=== PATIENT | male | born 1975 | race Caucasian/White ===

== ENCOUNTER → 2017-04-12 | Day surgery (SDC) | payer OTHER ==
[~2017-04-12] VITALS: Ht 177.8 cm; Wt 92.9 kg
[~2017-04-12] MED LIST: DIOVAN320 MG PO; NORCO 5-325 TA1 EACH PO; NORVASC5 MG PO; PROAIR HFA8.5 GM INH
--- NOTE | ~2017-04-12 | OR ---
PATIENT'S NAME: ANJEL BECKETT [facility] AGE: 41 Y [address] ROOM: [place] [id number] LOCATION: [facility] – [place] ADMIT DATE: 04/12/2017 OR/Procedure Report DISCHARGE DATE: FAMILY PHYSICIAN: Herminia Orta MD ATTENDING PHYSICIAN: German Song SURGEON: German Song DPM PARTS FACILITATOR: DATE OF PROCEDURE: 04/12/2017 PREOPERATIVE DIAGNOSIS: Neuroma, third intermetatarsal space, right foot. POSTOPERATIVE DIAGNOSIS: Neuroma, third intermetatarsal space, right foot. PROCEDURE PERFORMED: Neurectomy, third intermetatarsal space, right foot. OPERATIVE SUMMARY: On 04/12/2017, this 41-year-old male was transported to the operating room and placed on the operating room table in supine position. Next, under sedation, local anesthesia was achieved via an ankle block to the right foot and ankle. Next, the right foot was prepped and draped in the usual sterile fashion. Next, pneumatic ankle tourniquet was applied to well- padded site just proximal to malleoli and about the midcalf and roughly inflated to 250 mmHg following exsanguination by Esmarch bandage. Next, the right lower extremity was delivered back to the operating room table, sterile draping was completed, and the following procedure was performed. NEURECTOMY, THIRD INTERMETATARSAL SPACE, RIGHT FOOT. At this time, attention was directed towards the patient's right foot and on preoperative evaluation, he was noted to have significant pain on palpation to the third intermetatarsal space consistent with neuroma. So, at this time, approximately 4 cm linear incision was created directly in the intermetatarsal space and continued slightly into the interdigital space to get access to the digital nerve. This incision was deepened down through the subcutaneous tissues. All coursing venous tributaries were identified, isolated, clamped, cut, electrocoagulated, and encountered. All vital neurovascular structures were gently retracted in the medial and lateral fashion. Dissection was carried down to the level of the transverse metatarsal ligament between the third and fourth metatarsals and this was sharply transected. Once through this area, the intermetatarsal space was palpated plantarly and the enlarged nerve immediately was visible on the plantar aspect of the incision. Once this was identified, hemostat was used to clamp this off and then it was removed utilizing a tenotomy scissor. It was removed in total and sent to Pathology for both gross and microscopic examination. Being satisfied with the removal, attention was then directed towards closure. PATIENT'S NAME: ANJEL BECKETT [facility] AGE: 41 Y [address] ROOM: [place] [id number] LOCATION: [facility] – [place] ADMIT DATE: 04/12/2017 OR/Procedure Report DISCHARGE DATE: FAMILY PHYSICIAN: Herminia Orta MD ATTENDING PHYSICIAN: German Song The wound was flushed with copious amounts of sterile saline. Next, the deep tissues were reapproximated utilizing 3-0 Vicryl in a simple interrupted fashion. The skin edges were then reapproximated utilizing 4-0 Vicryl in a retention stitch. Next, the skin edges were reapproximated utilizing 5-0 Vicryl in a running subcuticular fashion. Being satisfied with this, attention was then directed towards bandaging. The incision was reinforced utilizing 1/2 inch Steri-Strips and tincture of benzoin. Next, a dressing consisting of Adaptic, sterile 4 x 4, Kerlix, Antonio, and Coban was applied in a mild compressive and corrective fashion to the patient's right foot. The previously applied pneumatic ankle tourniquet was wrapped and deflated, and spontaneous capillary refill time was noted in digits 1 through 5 of the patient's right foot. The patient tolerated the above procedure well and left the operating room in good condition with vital signs stable. He was returned to holding area for further monitoring prior to discharge. GERMAN SONG DPM PDM/modl /[id number] d: t: 04/12/17 1823, OPERATIVE SUMMARY
== END | disposition disaster alternative care site (69) ==
LOC: GPOC 04-09 17:00 → GSDC 07:46 → GPOC 17:00
PROC: 01BD0ZZ Excision of Femoral Nerve, Open Approach (ICD-10-PCS; principal; 2017-04-12)
DX: G57.61 Lesion of plantar nerve, right lower limb (principal); I10 Essential (primary) hypertension; J45.909 Unspecified asthma, uncomplicated; R56.9 Unspecified convulsions; Z87.891 Personal history of nicotine dependence; Z90.49 Acquired absence of other specified parts of digestive tract; Z98.890 Other specified postprocedural states
CPT/HCPCS: J0690; J1100; J2001; J7120